=== PATIENT | female | born 1985 | race Caucasian/White ===

== ENCOUNTER 2019-10-09 16:33 | Emergency (ER) | payer MEDICAID ==
--- NOTE | 2019-10-09 17:00 | EDM.PDOC ---
ED HPI GENERAL MEDICAL PROBLEM - General Chief Complaint: Respiratory Problem Stated Complaint: FLU SYMPTOMS Time Seen by Provider: 10/09/19 16:36 Source of Information: Reports: Patient History Limitations: Reports: No Limitations - History of Present Illness INITIAL COMMENTS - FREE TEXT/NARRATIVE: HISTORY AND PHYSICAL: History of present illness: Patient is a a 34 year old female who presents to the ED with complaints of cough, sinus pressure and nasal drainage x 5 days. Has had subjective fever and chills. Has been using Tylenol, Ibuprofen and OTC cough/cold medications without relief. Patient denies neck pain/stiffness, headache, change in vision, syncope or near syncope. Denies any chest pain, back pain, or shortness of breath. Denies any GI or symptoms. Denies any chance of . Patient has been eating and drinking appropriately. Review of systems: As per history of present illness and below otherwise all systems reviewed and negative. Past medical history: As per history of present illness and as reviewed below otherwise noncontributory. Surgical history: As per history of present illness and as reviewed below otherwise noncontributory. Social history: See social history for further information Family history: As per history of present illness and as reviewed below otherwise noncontributory. Physical exam: General: Well-developed and well-nourished 34-year-old female. Alert and oriented. Nontoxic appearing and in no acute distress. Vital signs are stable and have been reviewed by me. HEENT: Atraumatic, normocephalic, pupils equal and reactive bilaterally, negative for conjunctival pallor or scleral icterus, mucous membranes moist, TMs normal bilaterally, throat clear, neck supple, nontender, trachea midline. No drooling or trismus noted. No meningeal signs. No hot potato voice noted. Lungs: Clear to auscultation, breath sounds equal bilaterally, chest nontender. Heart: S1S2, regular rate and rhythm without overt murmur Abdomen: Soft, nondistended, nontender. Negative for masses or costovertebral tenderness. Skin: Intact, warm, dry. No lesions or rashes noted. Extremities: Atraumatic, moves all extremities per self without difficulty or deficits, negative for cords or calf pain. Neurovascular unremarkable. Neuro: Awake, alert, oriented. Cranial nerves II through XII unremarkable. Cerebellum unremarkable. Motor and sensory unremarkable throughout. Exam nonfocal. Notes: Patient is out of the window for Tamiflu. Supportive care measures were reviewed and discussed. Voices understanding and is agreeable to plan of care. Denies any further questions or concerns at this time. Diagnostics: Influenza Therapeutics: None Prescription: Guaifenesin w/ Cod (#100ml) Impression: Influenza B Plan: 1. Standard contact precautions (covering mouth while coughing, avoid sharing drinking cups and eating utensils). Please make sure you're doing good handwashing as this is contagious. 2. Supportive care measures such as Tylenol and/or ibuprofen for pain and fever management. Encourage small frequent sips of fluids to prevent dehydration. 3. Follow-up with your tray service worker in the next 1-2 days. Return to the ED as needed and as discussed.. Definitive disposition and diagnosis as appropriate pending reevaluation and review of above. - Related Data Allergies Allergy/AdvReac Type Severity Reaction Status Date / Time No Known Allergies Allergy Verified 10/09/19 17:13 Home Meds: Home Meds Codeine Phosphate/Guaifenesin [Guaifen-Codeine 100-10 mg/5 ml] 5 ml PO Q4HR PRN #100 ml 10/09/19 [Rx] ED ROS GENERAL - Review of Systems Review Of Systems: Comprehensive ROS is negative, except as noted in HPI. ED EXAM, GENERAL - Physical Exam Exam: See Below (See dictation) Course - Vital Signs Last Recorded V/S: Last Vital Signs Temp 98.9 F 10/09/19 17:10 Pulse 69 10/09/19 17:10 Resp 18 10/09/19 17:10 BP 117/58 L 10/09/19 17:10 Pulse Ox 96 10/09/19 17:10 Departure - Departure Time of Disposition: 18:33 Disposition: Home, Self-Care 01 Clinical Impression: Influenza B - Discharge Information Prescriptions: Codeine Phosphate/Guaifenesin [Guaifen-Codeine 100-10 mg/5 ml] 5 ml PO Q4HR PRN #100 ml PRN Reason: Cough Instructions: Influenza, Adult, [id number] Referrals: PCP,None [Primary Care Provider] - Forms: ED Department Discharge Additional Instructions: The following information is given to patients seen in the emergency department who are being discharged to home. This information is to outline your options for follow-up care. We provide all patients seen in our emergency department with a follow-up referral. The need for follow-up, as well as the timing and circumstances, are variable depending upon the specifics of your emergency department visit. If you don't have a primary care physician on staff, we will provide you with a referral. We always advise you to contact your personal physician following an emergency department visit to inform them of the circumstance of the visit and for follow-up with them and/or the need for any referrals to a consulting specialist. The emergency department will also refer you to a specialist when appropriate. This referral assures that you have the opportunity for follow-up care with a specialist. All of these measure are taken in an effort to provide you with optimal care, which includes your follow-up. Under all circumstances we always encourage you to contact your private physician who remains a resource for coordinating your care. When calling for follow-up care, please make the office aware that this follow-up is from your recent emergency room visit. If for any reason you are refused follow-up, please contact the [facility] Emergency Department at and asked to speak to the emergency department charge nurse. [facility] [address] [place], [place] [id number] [facility] [address] [place] [id number] 1. Standard contact precautions (covering mouth while coughing, avoid sharing drinking cups and eating utensils). Please make sure you're doing good handwashing as this is contagious. 2. Supportive care measures such as Tylenol and/or ibuprofen for pain and fever management. Encourage small frequent sips of fluids to prevent dehydration. 3. Follow-up with your primary care provider as we discussed. Return to the ED as needed and as discussed.. Sepsis Event Note - Focused Exam Vital Signs: Vital Signs Temp Pulse Resp BP Pulse Ox 10/09/19 17:10 98.9 F 69 18 117/58 L 96 Date Exam was Performed: 10/09/19 Time Exam was Performed: 18:33
== END 2019-10-09 18:50 | disposition home or self-care (01) ==
LOC: MW.ED 16:33
DX: J10.1 Influenza due to other identified influenza virus with other respiratory manifestations (principal)
CPT/HCPCS: 87804; 99282; 99283